=== PATIENT | male | born 1955 | race Caucasian/White ===

== ENCOUNTER 2017-08-11 15:45 | Emergency (ER) | payer OTHER ==
[~2017-08-11 15:45] MED LIST: Iopamidol 370 76% 100 ML VIAL ONE
[2017-08-11 16:43] LABS: #Eosinphils 0.1 thou/uL (0.0-0.7); #Lymphocytes 1.2 thou/uL (1.20-3.40); #Monocytes 0.2 thou/uL (0.11-0.59); #Neutrophils 2.3 thou/uL (1.40-6.50); %Basophils 1.1 % (0.0-1.0); %Eosinophils 2.2 % (0.0-10.0); %Lymphocytes 31.6 % (21.0-51.0); %Monocytes 6.1 % (0.0-10.0); %Neutrophils 59.1 % (42.0-75.0); Bilirubin Negative (Negative); Blood, Urine Negative (Negative); Clarity Clear (Clear); Glucose, Urine (Dipstick) Negative (Negative); Leukocyte Negative (Negative); Mean Corpuscular HGB CONC 34.3 g/dL (32.0-36.0); Mean Corpuscular Hemoglobin 31.5 pg (27.0-31.0); Mean Platelet Volume 8.7 fL (7.4-10.4); Nitrite Negative (Negative); Platelet Count 172 thou/uL (130-400); Protein, Urine (Dipstick) Negative (Neg-Trace); RBC Distribution Width 11.1 % (11.5-14.5); Red Blood Cell (RBC) Count 5.06 mill/uL (4.70-6.10); Specific Gravity, Urine 1.015 (1.005-1.030); Urobilinogen 0.2 mg/dL (0.2-1.0); White Blood Cell (WBC) Count 3.8 thou/uL (4.8-10.8); pH, Urine 7.5 (5.0-9.0)
[2017-08-11 16:57] LABS: ALT (SGPT) 23 U/L (8-55); AST (SGOT) 26 U/L (5-34); Albumin 4.4 g/dL (3.5-5.0); Alkaline Phosphatase 46 U/L (40-150); Anion Gap 16 mmol/L (10-20); BUN (Urea Nitrogen) 17 mg/dL (8.4-25.7); Bilirubin, Total 0.4 mg/dL (0.2-1.2); Calc. Creatinine Clearance 0 mL/min (70-130); Calcium 9.3 mg/dL (7.8-10.44); Carbon Dioxide 23 mmol/L (22-29); Chloride 109 mmol/L (98-107); Estimated GFR-MDRD Greater than 90; Globulin 2.1 g/dL (2.4-3.5); Glucose 91 mg/dL (70-105); Lipase 23 U/L (8-78); Potassium 4.5 mmol/L (3.5-5.1); Protein, Total 6.5 g/dL (6.0-8.3); Sodium 143 mmol/L (136-145)
--- NOTE | 2017-08-11 18:43 | CT ---
ABDOMEN CT WITH CONTRAST PELVIC CT WITH CONTRAST 08/11/17 HISTORY: Right lower quadrant pain. COMPARISON: None. TECHNIQUE: An abdomen and pelvic CT are performed with IV contrast. Enteric contrast was not administered. Coron al reformatted images are submitted for interpretation. FINDINGS: ABDOMEN CT: Dependent atelectatic changes. No masses or consolidation. No pleural effusion. No pneumothorax. Hear t size is normal. No pericardial effusion. The descending thoracic aorta and abdominal aorta have a n ormal caliber. No periaortic fat stranding. Portal vein is patent. Contracted gallbladder. Hypodensity in the right hepatic lobe measuring 1.1 cm has an attenuation coefficient of 1 Hounsfield unit suggesting a cyst. No enhancing masses in the liver. Additional smaller subcentimeter hypodensi ties are noted and cannot be further characterized. Spleen, pancreas and adrenal glands have appropri ate enhancement. No gastrohepatic, retrocrural or periportal lymphadenopathy. No mesenteric mass, lymphadenopathy, free air or free fluid. Symmetric enhancement of the kidneys. Bilaterally, no obstructive uropathy. Limited evaluation of the alimentary canal due to lack of oral contrast. gastric mucosa is unremarkab le. Multiple normal caliber small bowel loops. Ileocecal junction is normal. Scattered material throughout the nondistended, nondilated colon. There is evidence of diverticulitis, without evidence of diverticulitis. Normal caliber appendix. No periappendiceal inflammatory change. Note is made of an umbilical hernia containing mesenteric fat. Symmetric attenuation of the psoas muscles. PELVIC CT: No mass, lymphadenopathy, free air of free fluid. Urinary bladder is unremarkable. No lytic or blastic lesions in the osseous structures. IMPRESSION: 1. Normal caliber appendix. 2. No acute abnormality in the abdomen or pelvis. POS: [facility]
== END 2017-08-11 18:15 | disposition home or self-care (01) ==
LOC: SCSER 15:45
DX: B34.9 Viral infection, unspecified (principal); R10.31 Right lower quadrant pain
CPT/HCPCS: 74177; 80053; 81003; 82150; 83690; 85025; 96360